=== PATIENT | female | born 1960 | race Caucasian/White ===

== ENCOUNTER 2021-02-04 09:32 | Emergency (ER) | payer BC, MEDICARE ==
[~2021-02-04] VITALS: Ht 157.5 cm; Wt 86.4 kg
[2021-02-04 09:39] VITALS: BP 139/82
== END 2021-02-04 11:06 | disposition home or self-care (01) ==
LOC: ER 09:36
DX: S93.602A Unspecified sprain of left foot, initial encounter (principal); W19.XXXA Unspecified fall, initial encounter; Y93.89 Activity, other specified; Y92.89 Other specified places as the place of occurrence of the external cause; Y99.8 Other external cause status
CPT/HCPCS: 73630; 99283